=== PATIENT | female | born 1995 | race Caucasian/White ===

== ENCOUNTER 2020-02-16 17:34 | Emergency (ER) | payer OTHER ==
--- OUTSIDE RECORDS SUMMARY | 2020-02-16 17:42 | XMS REPORT | Summary of Care ---
:1995 Author Organization [facility] Address [address] [place] [address] Care Team Providers Name Role Phone Pcp, Patient Does Not Have A Primary Care Provider +1-000-00 0-0000 Encounter Details Date Type Department Care Team Description 01/29/2020 Letter (Out) [facility] Reggie Message s Doctor Unassigned, No 301 [facility] [place] [address] [address] [facility] [phone] [place] [address] Allergies Not on Filedocumented as of this encounter (statuses as of 01/29/2020) Medications Not on filedocumented as of this encounter (statuses as of 01/29/2020) Active Problems Not on filedocumented as of this encounter (statuses as of 01/29/2020) Social History Tobacco Use Types Packs/Day Years Used Date Never Assessed Sex Assigned at Date Recorded Not on file COVID-19 Exposure Response Date Recorded In the last month, have you been in contact with No / Unsure 01/29/2020 1:03 PM CDT someone who was confirmed 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 documented as of this encounter Last Filed Vital Signs Not on filedocumented in this encounter Plan of Treatment Health Maintenance Due Date Last Done Comments VARICELLA VACCINES (1 of 2 - 01/26/1996 2-dose childhood series) HPV VACCINES (1 - 2-dose series) 2006 Depression Screening 2007 DTaP,Tdap,and Td Vaccines (1 - 2014 Tdap) PAP SMEAR 01/26/2016 INFLUENZA VACCINE (#1) 2020 PNEUMOCOCCAL 0-64 YEARS COMBINED Aged Out No longer eligible based on SERIES patient's age to complete this topic documented as of this encounter Results Not on filedocumented in this encounter Insurance Payer Benefit Plan / Group Subscriber ID Effective Dates Phone Address Type AETNA AETNA CHOICE POS II [id number] 2018-Present POS documented as of this encounter
--- OUTSIDE RECORDS SUMMARY | 2020-02-16 17:42 | XMS REPORT | Summary of Care ---
:1995 Author Organization [facility] Address [address] [place] [address] Care Team Providers Name Role Phone Pcp, Patient Does Not Have A Primary Care Provider +1-000-00 0-0000 Encounter Details Date Type Department Care Team Description 01/29/2020 Letter (Out) [facility] Reggie Message s Doctor Unassigned, No 301 [facility] [place] [phone] [facility] [phone] [place] [address] Allergies Not on Filedocumented as of this encounter (statuses as of 01/29/2020) Medications Not on filedocumented as of this encounter (statuses as of 01/29/2020) Active Problems Not on filedocumented as of this encounter (statuses as of 01/29/2020) Social History Tobacco Use Types Packs/Day Years Used Date Never Assessed Sex Assigned at Date Recorded Not on file documented as of this encounter Last Filed [...] Address Type AETNA AETNA CHOICE POS II [id number] 2018-Present POS documented as of this encounter
--- OUTSIDE RECORDS SUMMARY | 2020-02-16 17:42 | XMS REPORT | Summary of Care ---
:1995 Author Organization [facility] Address [address] [place] [address] Care Team Providers Name Role Phone Pcp, Patient Does Not Have A Primary Care Provider +1-000-00 0-0000 Reason for Visit Reason Comments Results Encounter Details Date Type Department Care Team Description 01/31/2020 Telephone [facility] Carol Crystal, RN Results [address] [address] [place] [address] Allergies Not on Filedocumented as of this encounter (statuses as of 01/31/2020) Medications Not on filedocumented as of this encounter (statuses as of 01/31/2020) Active Problems Not on filedocumented as of this encounter (statuses as of 01/31/2020) Social History Tobacco Use Types Packs/Day Years [...] Signs Not on filedocumented in this encounter Miscellaneous Notes Telephone Encounter - Carol Crystal RN - 01/31/2020 7:19 PM CDTElisabeth Cordreo is a 25 year old female who tested negative for Covid-19. Letter mailed to address on file with the following information. Your COVID 19 testing results were negative. At this time, the COVID 19 virus was NOT found in your sample. Continue to protect yourself by wearing a facemask and washing your hands frequently. If youhave not had symptoms, you may return to work immediately. If you had symptoms, you may return to work or school when you are feeling better and have not had a fever for 24 hours or more without takingfever reducing medications such as acetaminophen or ibuprofen and are 10 days from your first symptoms. Wear a mask until it has been greater than 14 days from when your first symptoms appeared. If you are a [facility] or contract employee or student, please refer to this website for more information https: [email or web address]. If you feel you are not getting better, please call the [facility] at [phone] or toll free to schedule a telehealth visit or face to face visit with a provider. Most acute illnesses resolve within 7 days. [facility] Triage Nurse documented in this encounter Plan of Treatment Health [...] Address Type AETNA AETNA CHOICE POS II [id number] 2018-Present POS documented as of this encounter
--- OUTSIDE RECORDS SUMMARY | 2020-02-16 17:42 | XMS REPORT | Continuity of Care Document ---
:1995 Author Organization [facility] t Address [address] [place] [address] [address] [place] [address] Care Team Providers Name Role Phone Kenneth Crystal RN Attending Clinician Unavailable Lab, Fam Pob I Attending Clinician Unavailable Doctor Unassigned, Name Attending Clinician Unavailable Problems This patient has no known problems. Allergies, Adverse Reactions, Alerts This patient has no known allergies or adverse reactions. Medications This patient has no known medications. Procedures This patient has no known procedures. Encounters Start End Encounter Admission Attending Care Care Encounter Source Date/Time Date/Time Type Type Clinicians Facility Department ID 2020-01-31 2020-01-31 Telephone Carol Crystal [id number] 00:00:00 00:00:00 [place] [id number] [place] [id number] 2020-01-29 2020-01-29 Laboratory Lab, [facility] [id number] 13:00:01 13:20:01 Only Fam Pob I Health [id number] [place] [id number] [facility] [phone] [address] 2020-01-29 2020-01-29 Letter Doctor WALLACE [id number] 00:00:00 00:00:00 (Out) Unassigned, [place] [id number] [place] [phone] [id number] 2020-01-29 2020-01-29 Letter Doctor WALLACE [id number] 00:00:00 00:00:00 (Out) Unassigned, [place] [id number] [place] [facility] [id number] Results This patient has no known results.
--- OUTSIDE RECORDS SUMMARY | 2020-02-16 17:42 | XMS REPORT | Summary of Care ---
:1995 Author Organization [facility] Address [address] [place] [address] Care Team Providers Name Role Phone Pcp, Patient Does Not Have A Primary Care Provider +1-000-00 0-0000 Reason for Visit Reason Comments Exposure Encounter Details Date Type Department Care Team Description 01/29/[address] [facility] Family Chaparrita Carreno FNP [address] [place] [phone] Suspected Covid-19 [facility], [facility] Fam Pob I Virus Infection [address] [place] [address] (Primary D x) [place] [address] Allergies Not on Filedocumented as of this [...] Signs Not on filedocumented in this encounter Nursing Notes Alejandrina Gillespie - 01/29/2020 1:00 PM CDTElisabeth Cordero is a 25 year old female here for COVID Screening with a Nasopharyngeal Swab All droplet and contact precautions taken with appropriate PPE worn while interacting with patient. ? Goggles ? N95 Mask ? Gloves ? Gown RR 17 Pulse Ox 97 Pulse 95 Patient educated on plan of care for visit, swabbing technique, risks and benefits of test and length of time to receive results. Verbal consent obtained to perform test. CDC Fact Sheet for Patients nCoV Diagnostic Panel dated 08/23/2019 and Factsheet What to Do if Sick with COVID 19 08/03/19 provided. Patient swabbed per appropriate nasopharyngeal technique, and patient tolerated well. Patient was discharged from the testing clinic in stable condition. Alejandrina Gillespie 01/29/2020 1:04 PM documented in this encounter Plan of Treatment Name Type Priority Associated Diagnoses Order S chedule COVID-19 (PCR MOLECULAR LAB Routine Suspected Covid-1 9 Virus Expected: 01/29/2020, TESTING) Infection Expires: 2020 Health Maintenance Due Date Last Done Comments [...] Results Not on filedocumented in this encounter Visit Diagnoses Diagnosis Suspected Covid-19 Virus Infection - Brielle hansen documented in this encounter Additional Health Concerns Infection Onset Date Last Indicated Resolved Time COVID-19 Rule Out 01/29/2020 01/29/2020 documented as of this encounter documented as of this encounter
[2020-02-16 18:42] LABS: Absolute Lymphocytes (CBC) 2.5 K/uL (0.7-4.9); Basophils % 0.6 % (0-1.3); Hematocrit 38.3 % (36.0-45.0); Lymphocytes % 51.2 % (15.3-44.8); MPV 9.2 fL (7.6-11.3); RBC Red Blood Cell Count 4.28 M/uL (3.86-4.86)
[2020-02-16 19:00] LABS: BUN Blood Urea Nitrogen 20 mg/dL (7-18); Bicarbonate 27 mmol/L (21-32); Glucose Level 86 mg/dL (74-106); HCG, Quantitative 64 mIU/mL (1-3); Potassium 3.9 mmol/L (3.5-5.1); Sodium Level 141 mmol/L (136-145)
[2020-02-16 19:11] LABS: Urine Blood 3+ (NEG); Urine Glucose NEGATIVE (NEG); Urine Protein NEGATIVE (NEG); Urine Specific Gravity >1.030 (1.005-1.030); Urine pH 5.5 (5.0-7.0)
--- NOTE | 2020-02-16 20:15 | ER ---
Nurse's Notes [facility] Name: Elisabeth Cordero Age: 25 yrs Sex: Female : 1995 Arrival Date: 02/16/2020 Time: 17:37 Bed 7 Private MD: Diagnosis: Threatened Presentation: 02/15 17:42 Chief complaint: Patient states: Vaginal bleeding since Saturday getting slowly worse ll1 each day. Bleeding "like a light period" now with small clots. + cramping. Denies dysuria. int. nausea. Approximately 6 weeks . G1, P0 LMP January 07. Coronavirus screen: Client denies travel out of the [place] in the last 14 days. At this time, the client does not indicate any symptoms associated with coronavirus-19. Ebola Screen: Patient denies travel to an Ebola-affected area in the 21 days before illness onset. Initial Sepsis Screen: Does the patient meet any 2 criteria? No. Patient's initial sepsis screen is negative. Initial Sepsis Screen: Risk Assessment: Do you want to hurt yourself or someone else? Patient reports no desire to harm self or others. Onset of symptoms was February 12, 2020. 17:42 Method Of Arrival: Ambulatory ll1 17:42 Acuity: PHILL 3 ll1 19:29 Initial Sepsis Screen: Does the patient have a suspected source of infection? No. vc Patient's initial sepsis screen is negative. 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 - Social history:: Smoking status: Patient denies any tobacco usage or history of. Patient uses alcohol, only on a social basis. Patient/guardian denies using street drugs. Screenin:14 Abuse screen: Denies threats or abuse. Denies injuries from another. Nutritional jr10 screening: No deficits noted. Tuberculosis screening: No symptoms or risk factors identified. Fall Risk None identified. Assessment: 18:15 Obstetrical Assessment: General assessment: awake and alert, skin warm and dry, jr10 respirations even and unlabored, Patient reports abdominal cramping. General: Appears in no apparent distress. Behavior is appropriate for age. Pain: Denies pain. Neuro: No deficits noted. Cardiovascular: No deficits noted. Respiratory: No deficits noted. GI: Abdomen is non-distended, Abd is soft and non tender X 4 quads. Reports cramping, Patient currently denies diarrhea, nausea, vomiting. : Reports vaginal bleeding that is bright red, light flow, spotty, reports that she is approx 5 weeks , ; reports light intermittent bleeding that started this morning with mild lower abd cramping; reports blood that is "sometimes bright red and sometimes just a light pink"; pt has appt with OBGYN this Saturday. EENT: No deficits noted. No signs and/or symptoms were reported regarding the EENT system. Derm: No deficits noted. No signs and/or symptoms reported regarding the dermatologic system. Musculoskeletal: No deficits noted. No signs and/or symptoms reported regarding the musculoskeletal system. 19:00 Reassessment: Assumed care from Rob Portillo. vc 19:20 Reassessment: Patient and/or family updated on plan of care and expected duration. Pain vc level reassessed. Patient is alert, oriented x 3, equal unlabored respirations, skin warm/dry/pink. 20:30 Reassessment: Patient appears in no apparent distress at this time. Patient and/or vc family updated on plan of care and expected duration. Pain level reassessed. Patient is alert, oriented x 3, equal unlabored respirations, skin warm/dry/pink. Vital Signs: 17:42 BP 138 / 91; Pulse 86; Resp 17; Temp 98.5; Pulse Ox 100% ; Pain 2/10; ll1 18:50 BP 104 / 69; Pulse 69; Resp 16; Pulse Ox 100% on R/A; mh5 19:15 BP 119 / 65; Pulse 77; Resp 16; Pulse Ox 100% on R/A; vc Vitals: 19:29 Heart Tones Patient to early in for heart tones to be audible, vc vaginal ultrasound ordered.. ED Course: 17:37 Patient arrived in ED. ag5 17:41 Ana Cristina Rosas FNP-C [facility] kb 17:41 Gene Olson MD is Attending Physician. kb 17:44 Triage completed. ll1 17:44 Arm band placed on Patient placed in an exam room, on a stretcher. ll1 18:00 Suzie Conti, RN is Primary Nurse. jr10 18:14 Patient has correct armband on for positive identification. Placed in gown. Bed in low jr10 position. Call light in reach. Side rails up X2. Pulse ox on. NIBP on. 18:15 No provider procedures requiring assistance completed. jr10 18:27 Urine --Ancillary (enter results) Sent. mh5 18:27 Urine Dipstick--Ancillary (enter results) Sent. 5 18:27 Quantitative Hcg Sent. 5 18:27 Abo/rh Typing Sent. 5 18:27 Basic Metabolic Panel Sent. 5 18:27 CBC with Diff Sent. 5 18:28 Initial lab(s) drawn, by hi, sent to lab. Urine collected: clean catch specimen, clear. 5 Inserted saline lock: 22 gauge in right antecubital area, using aseptic technique. Blood collected. 18:29 Warm blanket given. [facility] 19:10 Primary Nurse role handed off by Suzie Conti RN vc 19:10 Angela Nichols, ROB is Primary Nurse. vc 19:50 Transvaginal Ob In Process Unspecified. EDMS 20:40 IV discontinued, intact, bleeding controlled, No redness/swelling at site. Pressure vc dressing applied. Administered Medications: No medications were administered Point of Care Testing: Urine : 19:15 hCG Reading: Positive; Control Reading: Positive; vc Outcome: 20:15 Discharge ordered by MD. kb 20:40 Discharged to home ambulatory. vc 20:40 Condition: good 20:40 Discharge instructions given to patient, Instructed on discharge instructions, follow up and referral plans. Demonstrated understanding of instructions, follow-up care. 20:44 Patient left the ED. vc Signatures: Dispatcher [employer] EDMO Ana Cristina Rosas FNP-C FNP-Marielle Linton 5 Hector Melendez 5 Angela Nichols RN RN vc Christen Sidhu RN RN 1 Suzie Conti RN RN jr10 Corrections: (The following items were deleted from the chart) 17:45 17:42 Chief complaint: Patient states: Vaginal bleeding since Saturday getting slowly ll1 worse each day. Bleeding "like a light period" now with small clots. + cramping. Denies dysuria. int. nausea. ll1
--- NOTE | 2020-02-16 20:15 | EDPHYS ---
Physician Documentation [facility] Name: Elisabeth Cordero Age: 25 yrs Sex: Female : 1995 Arrival Date: 02/16/2020 Time: 17:37 Bed 7 Private MD: ED Physician Gene Olson HPI: 02/15 21:02 This 25 yrs old Female presents to ER via Ambulatory with complaints of kb Vaginal Bleeding, + Preg <12wks. 21:02 The patient presents to the emergency department with vaginal bleeding, that is light. kb course: care: private OB physician, Leakage of Fluid: none appreciated, Ultrasound: the patient has not had an ultrasound, Risk/complications: no obvious risks or complications are appreciated. Previous pregnancies: the patient has never been . Associated signs and symptoms: Pertinent positives: vaginal bleeding, Pertinent negatives: abdominal pain, chest pain, diarrhea, dysuria, fever, frequency, nausea, ruptured membranes, seizure, shortness of breath, vaginal discharge, vomiting. The patient has not experienced similar symptoms in the past. The patient has not recently seen a physician. Pt reports light vaginal bleeding that started Saturday, was gone on Saturday, then started again after intercourse. . 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 - Social history:: Smoking status: Patient denies any tobacco usage or history of. Patient uses alcohol, only on a social basis. Patient/guardian denies using street drugs. ROS: 21:01 Constitutional: Negative for fever, chills, and weight loss, Cardiovascular: Negative kb for chest pain, palpitations, and edema, Respiratory: Negative for shortness of breath, cough, wheezing, and pleuritic chest pain, Abdomen/GI: Negative for abdominal pain, nausea, vomiting, diarrhea, and constipation, Back: Negative for injury and pain, MS/Extremity: Negative for injury and deformity, Skin: Negative for injury, rash, and discoloration, Neuro: Negative for headache, weakness, numbness, tingling, and seizure. 21:01 : Positive for vaginal bleeding, Negative for injury or acute deformity, urinary symptoms, urinary frequency, small amounts, hematuria, pelvic pain, flank pain, burning with urination, difficulty urinating, bladder incontinence, foul smelling urine, vaginal discharge, vaginal itching, menstrual abnormality, missed period. Exam: 21:01 Constitutional: This is a well developed, well nourished patient who is awake, alert, kb and in no acute distress. Head/Face: Normocephalic, atraumatic. Neck: Trachea midline, no thyromegaly or masses palpated, and no cervical lymphadenopathy. Supple, full range of motion without nuchal rigidity, or vertebral point tenderness. No Meningismus. Chest/axilla: Normal chest wall appearance and motion. Nontender with no deformity. No lesions are appreciated. Cardiovascular: Regular rate and rhythm with a normal S1 and S2. No gallops, murmurs, or rubs. Normal PMI, no JVD. No pulse deficits. Respiratory: Lungs have equal breath sounds bilaterally, clear to auscultation and percussion. No rales, rhonchi or wheezes noted. No increased work of breathing, no retractions or nasal flaring. Abdomen/GI: Soft, non-tender, with normal bowel sounds. No distension or tympany. No guarding or rebound. No evidence of tenderness throughout. Skin: Warm, dry with normal turgor. Normal color with no rashes, no lesions, and no evidence of cellulitis. MS/ Extremity: Pulses equal, no cyanosis. Neurovascular intact. Full, normal range of motion. Neuro: Awake and alert, GCS 15, oriented to person, place, time, and situation. Cranial nerves II-XII grossly intact. Motor strength 5/5 in all extremities. Sensory grossly intact. Cerebellar exam normal. Normal gait. Vital Signs: 17:42 BP 138 / 91; Pulse 86; Resp 17; Temp 98.5; Pulse Ox 100% ; Pain 2/10; ll1 18:50 BP 104 / 69; Pulse 69; Resp 16; Pulse Ox 100% on R/A; mh5 19:15 BP 119 / 65; Pulse 77; Resp 16; Pulse Ox 100% on R/A; vc MDM: 17:49 Patient medically screened. kb 21:01 Data reviewed: vital signs, nurses notes. Data interpreted: Pulse oximetry: on room air kb is 100 %. Interpretation: normal. Counseling: I had a detailed discussion with the patient and/or guardian regarding: the historical points, exam findings, and any diagnostic results supporting the discharge/admit diagnosis, lab results, radiology results, the need for outpatient follow up, an OB/Gyne specialist. ED course: Pt has appt with OB on Saturday. . 02/15 17:41 Order name: Quantitative Hcg; Complete Time: 19:01 kb 02/15 17:41 Order name: Abo/rh Typing; Complete Time: 19:30 kb 02/15 17:41 Order name: Basic Metabolic Panel; Complete Time: 19:01 kb 02/15 17:41 Order name: CBC with Diff; Complete Time: 18:46 kb 02/15 18:04 Order name: Urine Dipstick--Ancillary (enter results); Complete Time: 19:21 em1 02/15 18:04 Order name: Urine --Ancillary (enter results); Complete Time: 19:21 em1 02/15 17:41 Order name: Urine Test (obtain specimen); Complete Time: 18:00 kb 02/15 17:41 Order name: IV Saline Lock; Complete Time: 18:27 kb 02/15 17:41 Order name: Labs collected and sent; Complete Time: 18:27 kb 02/15 17:41 Order name: NPO; Complete Time: 18:01 kb 02/15 17:41 Order name: Urine Dipstick-Ancillary (obtain specimen); Complete Time: 18:00 kb 02/15 19:02 Order name: US Transvaginal Ob; Complete Time: 20:23 kb Administered Medications: No medications were administered Point of Care Testing: Urine : 19:15 hCG Reading: Positive; Control Reading: Positive; vc Disposition: 02/16 07:02 Co-signature as Attending Physician, Gene Olson MD. rn Disposition: 02/16/20 20:15 Discharged to Home. Impression: Threatened . - Condition is Stable. - Discharge Instructions: Vaginal Bleeding During , First Trimester, Threatened Miscarriage, [id number], Pelvic Rest. - Medication Reconciliation Form, Thank You Letter, Antibiotic Education, Prescription Opioid Use form. - Follow up: Emergency Department; When: As needed; Reason: Worsening of condition. Follow up: Private Physician; When: 2 - 3 days; Reason: Recheck today's complaints, Continuance of care, Re-evaluation by your physician. Signatures: Dispatcher [employer] EDAna Cristina Guillermo, DYE HOUSE WORKER-C DYE HOUSE WORKER-Ckb Gene Olson MD MD rn Calcote, Vanessa, RN RN vc Lewis, Lynsay, RN RN ll1 Corrections: (The following items were deleted from the chart) 02/15 20:44 20:15 02/16/2020 20:15 Discharged to Home. Impression: Threatened . Condition vc is Stable. Forms are Medication Reconciliation Form, Thank You Letter, Antibiotic Education, Prescription Opioid Use. Follow up: Emergency Department; When: As needed; Reason: Worsening of condition. Follow up: Private Physician; When: 2 - 3 days; Reason: Recheck today's complaints, Continuance of care, Re-evaluation by your physician. kb
--- NOTE | 2020-02-16 20:21 | RAD REPORT ---
EXAM DESCRIPTION: US - Transvaginal OB - 02/16/2020 7:51 pm CLINICAL HISTORY: VAGINAL BLEEDING, beta HCG 64 COMPARISON: No comparisons TECHNIQUE: Endovaginal sonography performed. FINDINGS: No intrauterine gestational sac or sac remnant identifiable. Endometrium is thickened at 1 6 mm. No focal mass, polyp or hematoma. No myometrial mass identifiable. Both ovaries are identifiable and show normal blood flow in the stroma. No solid or cystic dominant o varian or adnexal finding. No blood or fluid in the cul de sac. IMPRESSION: No gestational sac or sac remnant identified. No mass or other adnexal abnormality to suspect ectopic . Follow-up sonography could be performed if there is clinical or laboratory evidence for ongoing pregn zaki.
[2020-02-16 22:44] VITALS: TEMP 98.5; O2SAT 100
[2020-02-16 22:46] VITALS: BP 119/65
== END 2020-02-16 20:44 | disposition home or self-care (01) ==
LOC: ER 17:34
DX: O20.0 Threatened abortion (principal); Z3A.00 Weeks of gestation of pregnancy not specified
CPT/HCPCS: 36415; 76817; 80048; 81003; 81025; 84702; 85025; 86900; 86901; 99284

== ENCOUNTER 2020-06-27 16:58 | Emergency (ER) | payer OTHER ==
--- OUTSIDE RECORDS SUMMARY | 2020-06-27 17:01 | XMS REPORT | Summary of Care ---
:1995 Author Organization [facility] Address [address] [place] [address] Care Team Providers Name Role Phone Pcp, Patient Does Not Have A Primary Care Provider +1-000-00 0-0000 Reason for Visit Reason Comments LAB Encounter Details Date Type Department Care Team Description 04/27/[address] [facility] Family Arlet Shearer, NINI [address] [place], [place] [address] [address] Contact with or Medicine - [facility] Fam Pob I exposure to viral [address] [place] [address] disease (P rimary Dx) [place] [address] Allergies Not on Filedocumented as of this encounter (statuses as of 04/27/2020) Medications Not on filedocumented as of this encounter (statuses as of 04/27/2020) Active Problems Not on filedocumented as of this encounter (statuses as of 04/27/2020) Social History Tobacco Use Types Packs/Day Years Used Date Never Assessed Sex Assigned at Date Recorded Not on file COVID-19 Exposure Response Date Recorded In the last month, have you been in contact with Yes 04/27/2020 8:35 AM RN PATIENT CARE someone who was confirmed 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 documented as of this encounter Last Filed Vital Signs Not on filedocumented in this encounter Nursing Notes Tamy Powell MA - 04/27/2020 8:40 AM CSTElisabeth Cordero is a 25 year old female here for a Rule Out Covid-19 Nasopharyngeal Swab. Patient educated on plan of care for visit, swabbing technique, risks and benefits of test and length of timeto receive results. Verbal consent obtained to perform test. CDC Fact Sheet for Patients provided topatient. All droplet and contact precautions taken with appropriate PPE worn while interacting with patient. - Goggles - N95 Mask - Gloves - Gown RR=16 O2 Sat=99 Patient swabbed using appropriate nasopharyngeal technique, and patient tolerated well. Patient was discharged in stable condition. Tamy Powell MA 04/27/2020 8:43 AM PATIENT CARE documented in this encounter Plan of Treatment Name Type Priority Associated Diagnoses Date/Ti me COVID-19 (MOLECULAR LAB Routine Contact with or expos ure 04/27/2020 8:42 AM RN PATIENT CARE TESTING to viral disease NUCLEIC ACID AMPLIFICATION) Name Type Priority Associated Diagnoses Order S chedule COVID-19 (MOLECULAR LAB Routine Contact with or expos ure Expected: 04/27/2020, TESTING to viral disease Expires: 2020 NUCLEIC ACID AMPLIFICATION) Health Maintenance Due Date Last Done Comments [...] filedocumented in this encounter Visit Diagnoses Diagnosis Contact with or exposure to viral diseas e - Primary Contact with or exposure to other viral diseases documented in this encounter Additional Health Concerns Infection Onset Date Last Indicated Resolved Time COVID-19 Rule Out 04/27/2020 04/27/2020 documented as of this encounter documented as of this encounter
--- OUTSIDE RECORDS SUMMARY | 2020-06-27 17:01 | XMS REPORT | Summary of Care ---
:1995 Author Organization [facility] Address [address] [place] [address] Care Team Providers Name Role Phone Pcp, Patient Does Not Have A Primary Care Provider +1-000-00 0-0000 Reason for Visit Reason Comments LAB test only Encounter Details Date Type Department Care Team Description 06/23/2020 Laboratory Only [facility] Raul Carson PA-C [address] [place] [address] Exposure to Medicine - [facility], [facility] Fam Pob I SARS-associated [address] [place] [address] coronaviru s ([address] Dx) [place] [address] Allergies Not on Filedocumented as of this encounter (statuses as of 06/23/2020) Medications Not on filedocumented as of this encounter (statuses as of 06/23/2020) Active Problems Not on filedocumented as of this encounter (statuses as of 06/23/2020) Social History Tobacco Use Types Packs/Day Years Used Date Never Assessed Sex Assigned at Date Recorded Not on file COVID-19 Exposure Response Date Recorded In the last month, have you been in contact with Yes 06/23/2020 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 documented as of this encounter Last Filed Vital Signs Not on filedocumented in this encounter Nursing Notes Keesha Gallagher MA - 06/23/2020 4:15 PM CSTElisabeth Cordero is a 25 year old [...] - N95 Mask - Gloves - Gown RR=14 O2 Sat=99% Patient swabbed using appropriate nasopharyngeal technique, and patient tolerated well. Patient was discharged in stable condition. Keesha Gallagher MA 06/23/2020 4:21 PM MIC CAPACITOR PROCESSOR documented in this encounter Plan of Treatment Name Type Priority Associated Diagnoses Order S raghavwandydebby COVID-19 (MOLECULAR LAB Routine Exposure to SARS-asso ciated Ordered: 06/23/2020 TESTING coronavirus NUCLEIC ACID AMPLIFICATION) documented as of this encounter Results Not on filedocumented in this encounter Visit Diagnoses Diagnosis Exposure to SARS-associated coronavirus - Primary documented in this encounter Additional Health Concerns Infection Onset Date Last Indicated Resolved Time COVID-19 Rule Out 06/23/2020 06/23/2020 documented as of this encounter documented as of this encounter
--- OUTSIDE RECORDS SUMMARY | 2020-06-27 17:01 | XMS REPORT | Continuity of Care Document ---
:1995 Author Organization [facility] t Address [address] [place] [address] Care Team Providers Name Role Phone Lab, Fam Pob I Attending Clinician Unavailable Marah RIVAS M Attending Clinician Unavailable Doctor Unassigned, Name Attending Clinician Unavailable Problems This patient has no known problems. Allergies, Adverse Reactions, Alerts This patient has no known allergies or adverse reactions. Medications This patient has no known medications. Procedures This patient has no known procedures. Encounters Start End Encounter Admission Attending Care Care Encounter Source Date/Time Date/Time Type Type Clinicians Facility Department ID 2020-06-23 2020-06-23 Laboratory Lab, [facility] [id number] 16:15:26 16:35:26 Only Fam Pob I Health [id number] [place] [id number] Professio [phone] nal [address] 2020-04-27 2020-04-27 Laboratory Lab, [facility] [id number] 08:41:59 09:01:59 Only Fam Pob I Health [id number] [place] [id number] Professio [phone] nal [address] 2020-01-31 2020-01-31 Telephone Carol Crystal [id number] 00:00:00 00:00:00 [place] [id number] [facility] [id number] [id number] 2020-01-29 2020-01-29 Laboratory Lab, [facility] [id number] 13:00:01 13:20:01 Only Fam Pob I Health [id number] [place] [id number] Professio [phone] nal 044 [address] 2020-01-29 2020-01-29 Letter Doctor [place]AD[place] [id number] 00:00:00 00:00:00 (Out) Unassigned, [place] [id number] [place] [facility] [id number] [id number] 2020-01-29 2020-01-29 Letter Doctor [place] [id number] 00:00:00 00:00:00 (Out) Unassigned, ZAIDA [id number] [place] [facility] [phone] 044 Results This patient has no known results.
--- NOTE | 2020-06-27 18:54 | RAD REPORT ---
EXAM DESCRIPTION: Adriano Alcazar (2 Views)06/27/2020 5:49 pm CLINICAL HISTORY: Chest pain COMPARISON: 2012 FINDINGS: The lungs appear clear of acute infiltrate. The heart is normal size IMPRESSION: No acute abnormalities displayed
--- NOTE | 2020-06-27 19:13 | ER ---
Nurse's Notes [facility] Name: Elisabeth Cordero Age: 25 yrs Sex: Female : 1995 Arrival Date: 06/27/2020 Time: 17:02 Bed 5 Private MD: Diagnosis: Coronavirus infection, unspecified Presentation: 06/27 17:24 Chief complaint: Patient states: Pt reports she has had chest pressure, worse with ca1 inspiration, since . Tested positive for COVID on Saturday. Called her pcp and was told to come to the ER for chest x-ray. Coronavirus screen: Client presents with at least one sign or symptom that may indicate coronavirus-19. Client reports previous positive COVID test result. Ebola Screen: Patient negative for fever greater than or equal to 101.5 degrees Fahrenheit, and additional compatible Ebola Virus Disease symptoms Patient denies exposure to infectious person. Patient denies travel to an Ebola-affected area in the 21 days before illness onset. No symptoms or risks identified at this time. Initial Sepsis Screen: Does the patient meet any 2 criteria? No. Patient's initial sepsis screen is negative. Does the patient have a suspected source of infection? No. Patient's initial sepsis screen is negative. Risk Assessment: Do you want to hurt yourself or someone else? Patient reports no desire to harm self or others. Onset of symptoms was June 23, 2020. 17:24 Method Of Arrival: Ambulatory ca1 17:24 Acuity: PHILL 3 ca1 Triage Assessment: 17:22 General: Appears in no apparent distress. comfortable, Behavior is calm, cooperative. ca1 Pain: Denies pain. Cardiovascular: No deficits noted. 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 - Social history:: Smoking status: Patient denies any tobacco usage or history of. Screenin:20 Abuse screen: Denies threats or abuse. Denies injuries from another. Nutritional bp screening: No deficits noted. Tuberculosis screening: No symptoms or risk factors identified. Fall Risk None identified. Assessment: 17:20 General: SEE TRIAGE NOTE. bp 18:50 Reassessment: Patient appears in no apparent distress at this time. No changes from bp previously documented assessment. Patient and/or family updated on plan of care and expected duration. Pain level reassessed. Patient is alert, oriented x 3, equal unlabored respirations, skin warm/dry/pink. 19:25 Reassessment: Patient is alert, oriented x 3, equal unlabored respirations, skin aa5 warm/dry/pink. Vital Signs: 17:22 BP 141 / 78; Pulse 82; Resp 18; Temp 97.1; Pulse Ox 99% ; Weight 95.25 kg; Height 5 ft. ca1 7 in. (170.18 cm); Pain 6/10; 18:49 BP 94 / 47; Pulse 70; Resp 16; Pulse Ox 99% ; bp 19:25 BP 112 / 89; Pulse 76; Resp 18 S; Pulse Ox 99% on R/A; aa5 17:22 Body Mass Index 32.89 (95.25 kg, 170.18 cm) ca1 ED Course: 17:02 Patient arrived in ED. as 17:13 Ana Cristina Rosas [facility]NP-C [facility] kb 17:13 Ajit Morgan MD is Attending Physician. kb 17:20 Patient has correct armband on for positive identification. Bed in low position. Call bp light in reach. Side rails up X2. Pulse ox on. NIBP on. 17:24 Arm band placed on right wrist. ca1 17:26 Triage completed. ca1 17:49 Chest Pa And Lat (2 Views) XRAY In Process Unspecified. EDMS 18:48 Herbert Mcneil, ROB is Primary Nurse. bp 19:25 No provider procedures requiring assistance completed. Patient did not have IV access aa5 during this emergency room visit. Administered Medications: No medications were administered Outcome: 19:13 Discharge ordered by . kb 19:25 Discharged to home ambulatory. aa5 19:25 Condition: stable 19:25 Discharge instructions given to patient, Instructed on discharge instructions, follow up and referral plans. medication usage, Demonstrated understanding of instructions, follow-up care, medications, Prescriptions given X 3. 19:29 Patient left the ED. aa5 Signatures: Dispatcher [employer] Ana Cristina Vázquez, COMMERCIAL LINES ACCOUNT ASSISTANT-C COMMERCIAL LINES ACCOUNT ASSISTANT-Isaacb Renee Bhatia Audri, RN RN aa5 Herbert Mcneil, RN RN bp Stephanie King, ROB RN ca1
--- NOTE | 2020-06-27 19:13 | EDPHYS ---
Physician Documentation [facility] Name: Elisabeth Cordero Age: 25 yrs Sex: Female : 1995 Arrival Date: 06/27/2020 Time: 17:02 Bed 5 Private MD: ED Physician Ajit Morgan HPI: 06/27 19:33 This 25 yrs old Female presents to ER via Ambulatory with complaints of Chest kb Pain - covid+. 19:33 The patient or guardian reports difficulty breathing, flu symptoms, low-grade fever, kb myalgias. Onset: The symptoms/episode began/occurred 5 day(s) ago. Severity of symptoms: At their worst the symptoms were moderate, in the emergency department the symptoms are unchanged. Modifying factors: The symptoms are alleviated by nothing, the symptoms are aggravated by nothing. Associated signs and symptoms: Pertinent positives: chest pain, fever, nausea. The patient has not experienced similar symptoms in the past. The patient has not recently seen a physician. 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 - Social history:: Smoking status: Patient denies any tobacco usage or history of. ROS: 19:32 Abdomen/GI: Negative for abdominal pain, nausea, vomiting, diarrhea, and constipation, kb Back: Negative for injury and pain, MS/Extremity: Negative for injury and deformity, Skin: Negative for injury, rash, and discoloration. 19:32 Constitutional: Positive for body aches, chills, fatigue, fever, malaise. 19:32 Cardiovascular: Positive for chest pain. 19:32 Respiratory: Positive for shortness of breath. 19:32 Neuro: Positive for headache. Exam: 19:32 Constitutional: This is a well developed, well nourished patient who is awake, alert, kb and in no acute distress. Head/Face: Normocephalic, atraumatic. Chest/axilla: Normal chest wall appearance and motion. Nontender with no deformity. No lesions are appreciated. Cardiovascular: Regular rate and rhythm with a normal S1 and S2. No gallops, murmurs, or rubs. Normal PMI, no JVD. No pulse deficits. Respiratory: Lungs have equal breath sounds bilaterally, clear to auscultation and percussion. No rales, rhonchi or wheezes noted. No increased work of breathing, no retractions or nasal flaring. Abdomen/GI: Soft, non-tender, with normal bowel sounds. No distension or tympany. No guarding or rebound. No evidence of tenderness throughout. Skin: Warm, dry with normal turgor. Normal color with no rashes, no lesions, and no evidence of cellulitis. MS/ Extremity: Pulses equal, no cyanosis. Neurovascular intact. Full, normal range of motion. Neuro: Awake and alert, GCS 15, oriented to person, place, time, and situation. Cranial nerves II-XII grossly intact. Motor strength 5/5 in all extremities. Sensory grossly intact. Cerebellar exam normal. Normal gait. 19:54 ECG was reviewed by the Attending Physician. Vital Signs: 17:22 BP 141 / 78; Pulse 82; Resp 18; Temp 97.1; Pulse Ox 99% ; Weight 95.25 kg; Height 5 ft. ca1 7 in. (170.18 cm); Pain 6/10; 18:49 BP 94 / 47; Pulse 70; Resp 16; Pulse Ox 99% ; bp 19:25 BP 112 / 89; Pulse 76; Resp 18 S; Pulse Ox 99% on R/A; aa5 17:22 Body Mass Index 32.89 (95.25 kg, 170.18 cm) ca1 MDM: 17:13 Patient medically screened. kb 18:48 Data reviewed: vital signs, nurses notes. Data interpreted: Pulse oximetry: on room air kb is 99 %. Interpretation: normal. 19:32 Counseling: I had a detailed discussion with the patient and/or guardian regarding: the kb historical points, exam findings, and any diagnostic results supporting the discharge/admit diagnosis, lab results, radiology results, the need for outpatient follow up, a family practitioner, to return to the emergency department if symptoms worsen or persist or if there are any questions or concerns that arise at home. 06/27 17:20 Order name: Chest Pa And Lat (2 Views) XRAY; Complete Time: 18:57 ca1 06/27 17:20 Order name: EKG; Complete Time: 17:20 ca1 06/27 17:20 Order name: EKG - Nurse/Tech; Complete Time: 18:57 ca1 EC:54 Rate is 64 beats/min. Rhythm is regular. QRS Mayo is Normal. MN interval is normal at kb 150 msec. QRS interval is normal at 84 msec. QT interval is normal at 386 msec. Administered Medications: No medications were administered Disposition: 06/28 06:37 Co-signature as Attending Physician, Ajit Morgan MD I agree with the assessment and sandip plan of care. Disposition: 06/27/20 19:13 Discharged to Home. Impression: Coronavirus infection, unspecified. - Condition is Stable. - Discharge Instructions: Viral Respiratory Infection, Zyxn-Dv-Zlac, COVID-19. - Prescriptions for ivermectin 3 mg Oral tablet - take 6 tablet by ORAL route as directed take first dose now, then second dose on day 3; 12 tablet. Prednisone 20 mg Oral Tablet - take 1 tablet by ORAL route once daily for 5 days; 5 tablet. Albuterol Sulfate 90 mcg/actuation - inhale 1-2 puff by INHALATION route every 4-6 hours; 1 Inhaler. - Medication Reconciliation Form, Thank You Letter, Antibiotic Education, Prescription Opioid Use, Work release form form. - Follow up: Emergency Department; When: As needed; Reason: Worsening of condition. Follow up: Private Physician; When: 2 - 3 days; Reason: Recheck today's complaints, Continuance of care, Re-evaluation by your physician. Signatures: Dispatcher [employer] Ana Cristina Vázquez, CHRISTINA ÁLVAREZ-Ajit Saucedo MD MD cha Calderon, Audri, RN RN aa5 Stephanie King, RN RN ca1 Corrections: (The following items were deleted from the chart) 06/27 19:29 19:13 06/27/2020 19:13 Discharged to Home. Impression: Coronavirus infection, aa5 unspecified. Condition is Stable. Forms are Medication Reconciliation Form, Thank You Letter, Antibiotic Education, Prescription Opioid Use. Follow up: Emergency Department; When: As needed; Reason: Worsening of condition. Follow up: Private Physician; When: 2 - 3 days; Reason: Recheck today's complaints, Continuance of care, Re-evaluation by your physician. kb
[2020-06-27 19:56] VITALS: TEMP 97.1; O2SAT 99
[2020-06-27 19:57] VITALS: BP 94/47
--- NOTE | 2020-06-28 17:15 | EKG ---
Test Date: 2020-06-27 Test Time: 18:34:08 Deputy Juvenile Officer: CLAUS MEASUREMENT RESULTS: Intervals: Rate: 64 CA: 150 QRSD: 84 QT: 386 QTc: 398 Stanley: P: 35 CA: 150 QRS: 45 T: 38 INTERPRETIVE STATEMENTS: Normal sinus rhythm Normal ECG Compared to ECG 11/26/2012 03:05:17 Sinus arrhythmia no longer present Electronically Signed On 06-28-20 17:12:56 DECORATING INSTRUCTOR by Aristides Kimble
== END 2020-06-27 19:29 | disposition home or self-care (01) ==
LOC: ER 16:58
DX: U07.1 COVID-19 (principal); R07.9 Chest pain, unspecified; F90.9 Attention-deficit hyperactivity disorder, unspecified type; F32.9 Major depressive disorder, single episode, unspecified; F41.9 Anxiety disorder, unspecified
CPT/HCPCS: 71046; 93005; 99283

== ENCOUNTER → 2023-07-15 | Emergency (ER) | payer OTHER, SELFPAY ==
--- OUTSIDE RECORDS SUMMARY | 2023-07-15 01:45 | XMS REPORT | Continuity of Care Document ---
Author Name Unknown Address [address] [facility] [place] [address] [facility] thconnect Address [address] [facility] [address] [place] [address] Care Team Providers Care Molder Offbearer Name Role Phone Pcp, Patient Does Not Have A Primary Care Physic jhonny Dontrell Olmos Attending Clinician [phone] Unknown, Attending Attending Clinician Unavailab DONTRELL Mesa Attending Clinician Unavailable Renuka Craig Attending Clinician [phone] RENUKA ALVA Attending Clinician Unavailrobbie e Doctor Unassigned, [place] Attending Clinician U navailable Only, Ang Db Test Attending Clinician Unavailrobbie e Lab, Adc Fam Pob I Attending Clinician Unavailab Madison Gannon PA-C Attending Clinician [phone] MADISON HURTADO Attending Clinician Unavailable Shanelle Ozuna Attending Clinician [phone] SHANELLE MARIE Attending Clinician Unavailable Carol Crystal RN Attending Clinician Unavailable Naye Leavitt Attending Clinician [phone] NAYE CARRENO Attending Clinician Unavailable Payers Payer Name Policy Type Policy Number Effective Date Expirati on Date Source Problems Condition Name Condition Details Condition Category Status Onset Date Resolution Date Last Treatment Date Treating Clinician Comments Source No known active problems No known active problems Disease [facility] Allergies, Adverse Reactions, Alerts Allergy Name Allergy Type Status Severity Reaction(s) Onset Date Inactive Date Treating Clinician Comments Source NO KNOWN ALLERGIE S Drug Class Active [facility] Social History Social Habit Start Date Stop Date Quantity Comments Source Gender identity [facility] Sexual orientation U [facility] Exposure to SARS-CoV-2 (event) 2022-05-09 00:00:00 2022-05-19 16:55:00 Not sure [facility] History of Social function 2022-05-19 00:00:00 2022-05-19 00:00:00 [facility] Tobacco use and exposure 2022-05-19 00:00:00 2022-05-19 00:00:00 Smokeless tobacco non-user [facility] Sex Assigned At 1995 00:00:00 1995 00:00:00 [facility] Smoking Status Start Date Stop Date Source Tobacco smoking consumption unknown [facility] Never smoked tobacco [facility] Medications Ordered Medication Name Filled Medication Name Start Date Stop Date Current Medication? Ordering Clinician Indication Dosage Frequency Signature (SIG) Comments Components Source ipratropium -albuteroL (DUONEB) 0.5 mg-3 mg(2.5 mg base)/3 mL nebulizer solution 3 mL 2021-06 00:15: 00 05-19 23:33 :00 No [id number] 3mL [facility] methylPREDN ISolone acetate (DEPO-MEDRO L) injection 40 mg 2021-06 00:15: 00 05-19 23:32 :00 No [id number] 40mg [facility] methylPREDN ISolone acetate (DEPO-MEDRO L) injection 40 mg 2021-06 00:15: 00 05-19 23:32 :00 No [id number] 40mg 40 mg, Intramuscu lar, ONCE, 1 dose, On 05/19/22 at 1815, Routine [facility] ipratropium -albuteroL (DUONEB) 0.5 mg-3 mg(2.5 mg base)/3 mL nebulizer solution 3 mL 2021-06 00:15: 00 05-19 23:33 :00 No [id number] 3mL 3 mL, Inhalation , ONCE, 1 dose, On 05/19/22 at 1815, Routine [facility] lisdexamfet amine 20 mg capsule 2021-06 16:58: 05 Yes 20mg Take 20 mg by mouth. [facility] lisdexamfet amine 20 mg capsule 2021-06 16:58: 05 Yes 20mg Take 20 mg by mouth. [facility] lisdexamfet amine 20 mg capsule 2021-06 16:58: 05 Yes 20mg Take 20 mg by mouth. [facility] lisdexamfet amine 20 mg capsule 2021-06 16:58: 05 Yes 20mg Take 20 mg by mouth. [facility] albuterol 90 mcg/actuati on inhaler 2021-06 00:00: 00 Yes [id number] 2{puff} Inhale 2 Puffs every 6 (six) hours as needed for Wheezing, Bronchospa sm or Chest tightness. [facility] bromphenira mine-pseudo ephedrine-D M (BROMFED DM) 2-30-10 mg/5 mL syrup 2021-06 00:00: 00 Yes [id number] 5mL Take 5 mL by mouth 4 (four) times daily as needed for Congestion /Allergies or Cough. [facility] albuterol 90 mcg/actuati on inhaler 2021-06 00:00: 00 Yes [id number] 2{puff} Inhale 2 Puffs every 6 (six) hours as needed for Wheezing, Bronchospa sm or Chest tightness. [facility] bromphenira mine-pseudo ephedrine-D M (BROMFED DM) 2-30-10 mg/5 mL syrup 2021-06 00:00: 00 Yes [id number] 5mL Take 5 mL by mouth 4 (four) times daily as needed for Congestion /Allergies or Cough. [facility] albuterol 90 mcg/actuati on inhaler 2021-06 00:00: 00 Yes [id number] 2{puff} Inhale 2 Puffs every 6 (six) hours as needed for Wheezing, Bronchospa sm or Chest tightness. [facility] bromphenira mine-pseudo ephedrine-D M (BROMFED DM) 2-30-10 mg/5 mL syrup 2021-06 2 00:00: 00 Yes [id number] 5mL Take 5 mL by mouth 4 (four) times daily as needed for Congestion /Allergies or Cough. [facility] albuterol 90 mcg/actuati on inhaler 2021-06 00:00: 00 Yes [id number] 2{puff} Inhale 2 Puffs every 6 (six) hours as needed for Wheezing, Bronchospa sm or Chest tightness. [facility] bromphenira mine-pseudo ephedrine-D M (BROMFED DM) 2-30-10 mg/5 mL syrup 2021-06 00:00: 00 Yes [id number] 5mL Take 5 mL by mouth 4 (four) times daily as needed for Congestion /Allergies or Cough. [facility] phentermine 37.5 mg tablet 2021-06 00:00: 00 Yes 37.5mg Take 37.5 mg by mouth in the morning. [facility] phentermine 37.5 mg tablet 2021-06 00:00: 00 Yes 37.5mg Take 37.5 mg by mouth in the morning. [facility] phentermine 37.5 mg tablet 2021-06 00:00: 00 Yes 37.5mg Take 37.5 mg by mouth in the morning. [facility] phentermine 37.5 mg tablet 2021-06 00:00: 00 Yes 37.5mg Take 37.5 mg by mouth in the morning. [facility] SAXENDA 3 mg/0.5 mL (18 mg/3 mL) PnIj 2021-06 00:00: 00 Yes ADMINISTER 3 MG UNDER THE SKIN DAILY [facility] SAXENDA 3 mg/0.5 mL (18 mg/3 mL) [facility] 2021-06 00:00: 00 Yes ADMINISTER 3 MG UNDER THE SKIN DAILY [facility] SAXENDA 3 mg/0.5 mL (18 mg/3 mL) [facility] 2021-06 00:00: 00 Yes ADMINISTER 3 MG UNDER THE SKIN DAILY [facility] SAXENDA 3 mg/0.5 mL (18 mg/3 mL) PnIj 2021-06 00:00: 00 Yes ADMINISTER 3 MG UNDER THE SKIN DAILY [facility] SERTraline 100 mg tablet 2021-06 00:00: 00 Yes 100mg Take 100 mg by mouth in the morning. [facility] SERTraline 100 mg tablet 2021-06 00:00: 00 Yes 100mg Take 100 mg by mouth in the morning. [facility] SERTraline 100 mg tablet 2021-06 00:00: 00 Yes 100mg Take 100 mg by mouth in the morning. [facility] SERTraline 100 mg tablet 2021-06 00:00: 00 Yes 100mg Take 100 mg by mouth in the morning. [facility] BD CHEYRL 2ND GEN PEN NEEDLE 32 gauge x 5/32" Ndle 2021-06 010 00:00: 00 Yes USE DIRECTED ONCE A DAY. [facility] BD CHERYL 2ND GEN PEN NEEDLE 32 gauge x 5/32" Ndle 2021-06 0-10 00:00: 00 Yes USE DIRECTED ONCE A DAY. [facility] BD CHERYL 2ND GEN PEN NEEDLE 32 gauge x 5/32" Ndle 2021-06 0-10 00:00: 00 Yes USE DIRECTED ONCE A DAY. [facility] BD CHERYL 2ND GEN PEN NEEDLE 32 gauge x 5/32" Ndle 2021-06 0-10 00:00: 00 Yes USE DIRECTED ONCE A DAY. [facility] Vital Signs Vital Name Observation Time Observation Value Comments S ganga Systolic blood pressure 2023-02-06 20:42:00 136 mm[Hg] [facility] Diastolic blood pressure 2023-02-06 20:42:00 83 mm[Hg] [place] [facility] Heart rate 2023-02-06 20:42:00 103 /min Unive [facility] Body temperature 2023-02-06 20:42:00 37.44 Viviana [facility] Respiratory rate 2023-02-06 20:42:00 16 /min [facility] Body height 2023-02-06 20:42:00 170.5 cm [facility] Body weight 2023-02-06 20:42:00 85.322 kg [facility] BMI 2023-02-06 20:42:00 29.35 kg/m2 [facility] Oxygen saturation in Arterial blood by Pulse oximetry 2023-02-06 20:42:00 98 /min [facility] Systolic blood pressure 2022-05-19 22:56:00 137 mm[Hg] [facility] Diastolic blood pressure 2022-05-19 22:56:00 79 mm[Hg] [facility] Heart rate 2022-05-19 22:56:00 94 /min [facility] Body temperature 2022-05-19 22:56:00 36.94 Viviana [facility] Respiratory rate 2022-05-19 22:56:00 16 /min [facility] Body height 2022-05-19 22:56:00 172.7 cm [facility] Body weight 2022-05-19 22:56:00 99.338 kg [facility] BMI 2022-05-19 22:56:00 33.30 kg/m2 [facility] Oxygen saturation in Arterial blood by Pulse oximetry 2022-05-19 22:56:00 98 /min [facility] Procedures Procedure Date / Time Performed Performing Clinicia n Source POCT MOLECULAR FLU 2023-02-06 20:57:00 Unknown, Attend [facility] POCT SARS-COV-2 ANTIGEN (BINAX NOW) 2023-02-06 20:55:00 Dontrell Parikh [facility] POCT MOLECULAR STREP 2023-02-06 20:49:00 Unknown, Luly harris [facility] POCT MOLECULAR FLU 2022-05-19 22:57:00 Unknown, Attend [facility] POCT MOLECULAR STREP 2022-05-19 22:54:00 Christen, Luly harris [facility] ASSIGNMENT OF BENEFITS 2022-05-19 22:44:56 Docto r Unassigned, [place] [facility] Encounters Start Date/Time End Date/Time Encounter Type Admission Type Attending [facility] Care Facility Care Department Encounter ID Source 2023-02-06 15:40:00 2023-02-06 16:11:02 Urgent Care Dontrell Parikh Unknown, Attending [facility] 1.2.840.114 350.1.13.10 4.2.7.2.686 [id number] [facility] 2023-02-06 15:40:00 2023-02-06 16:11:02 Outpatient R DONTRELL PARIKH [facility] [id number] [facility] 2023-02-06 00:00:00 2023-02-06 00:00:00 Letter (Out) Dontrell Parikh [facility] 1.2.840.114 350.1.13.10 4.2.7.2.686 [id number] [facility] 2022-06-11 00:00:00 2022-06-11 00:00:00 Refill Renuka Alva [facility] 1.2.840.114 350.1.13.10 4.2.7.2.686 [id number] [facility] 2022-05-19 16:40:00 2022-05-19 17:00:00 Urgent Care [facility] 1.2.840.114 350.1.13.10 4.2.7.2.686 [id number] [facility] 2022-05-19 16:40:00 2022-05-19 16:40:00 Outpatient R RENUKA ALVA [facility] [id number] [facility] 2022-05-19 00:00:00 2022-05-19 00:00:00 Orders Only Doctor Unassigned, [place] [facility] 1.114 350.1.13.10 4.2.7.2.686 [id number] [facility] 2021-06-17 13:45:00 2021-06-17 14:00:00 Laboratory Only Only, Ang Db Test Unknown, Attending Joselin Alvatany [facility] 1.114 350.1.13.10 4.2.7.2.686 [id number] [facility] 2021-06-17 13:45:00 2021-06-17 13:45:00 Outpatient R RENUKA ALVA [facility] [id number] [facility] 2021-02-15 16:45:00 2021-02-15 16:45:00 Outpatient R [facility] [id number] [facility] 2020-06-23 16:15:26 2020-06-23 16:35:26 Laboratory Only Lab, [facility] 1.114 350.1.13.10 4.2.7.2.686 [id number] 2020-06-23 16:15:26 2020-06-23 16:35:26 Laboratory Only Lab, [facility] Brandi Hurtado [facility] 1.114 350.1.13.10 4.2.7.2.686 [id number] [facility] 2020-06-23 16:15:00 2020-06-23 16:15:00 Outpatient R MADISON HURTDAO [facility] [id number] [facility] 2020-04-27 08:41:59 2020-04-27 09:01:59 Laboratory Only Lab, [facility] 1.2.840.114 350.1.13.10 4.2.7.2.686 [id number] 2020-04-27 08:41:59 2020-04-27 09:01:59 Laboratory Only Lab, [facility] Fam Pob Shanelle Lancaster [facility] 1.840.114 350.1.13.10 4.2.7.2.686 [id number] [facility] 2020-04-27 08:40:00 2020-04-27 08:40:00 Outpatient Merrill CYNTHIA, SHANELLE [facility] [id number] [facility] 2020-01-31 00:00:00 2020-01-31 00:00:00 Telephone [facility] 1..840.114 350.1.13.10 4.2.7.2.686 [id number] 2020-01-31 00:00:00 2020-01-31 00:00:00 Telephone [facility] 1.2.840.114 350.1.13.10 4.2.7.2.686 [id number] [facility] 2020-01-29 13:00:01 2020-01-29 13:20:01 Laboratory Only Lab, [facility] Fam Leonardb Noelle Erika Carrenothia [facility] 1.840.114 350.1.13.10 4.2.7.2.686 [id number] [facility] 2020-01-29 13:00:01 2020-01-29 13:20:01 Laboratory Only Lab, [facility] Pob I [facility] 1.840.114 350.1.13.10 4.2.7.2.686 [id number] 2020-01-29 13:00:00 2020-01-29 13:00:00 Outpatient Merrill NAYE CARRENO [facility] [id number] [facility] 2020-01-29 00:00:00 2020-01-29 00:00:00 Letter (Out) Doctor Unassigned, [place] [facility] 1.2.840.114 350.1.13.10 4.2.7.2.686 [id number] [facility] 2020-01-29 00:00:00 2020-01-29 00:00:00 Letter (Out) Doctor Unassigned, [place] [facility] 1.2.840.114 350.1.13.10 4.2.7.2.686 [id number] [facility] 2020-01-29 00:00:00 2020-01-29 00:00:00 Letter (Out) Doctor Unassigned, [place] [facility] 1.2.840.114 350.1.13.10 4.2.7.2.686 [id number] 2020-01-29 00:00:00 2020-01-29 00:00:00 Letter (Out) Doctor Unassigned, [place] [facility] 1.2.840.114 350.1.13.10 4.2.7.2.686 [id number] Results Test Description Test Time Test Comments Results Result Co mments Source [facility] MOLECULAR [id number] 21:09:10* Test Item Value Reference Range Interpretation Comme nts POCT Molecular FluA (test co de = 43599-7) Negative Negative POCT Molecular FluB (test co de = 49810-3) Negative Negative Lab Interpretation (test cod e = 79096-3) Normal [facility] MOLECULAR [id number] 20:56:41* Test Item Value Reference Range Interpretation Comme nts POCT Molecular Strep (test c ode = 08342-9) Negative Negative Lab Interpretation (test cod e = 39742-7) Normal [facility] MOLECULAR [id number] 23:08:59* Test Item Value Reference Range Interpretation Comme nts POCT Molecular FluA (test co de = 11448-6) Negative Negative POCT Molecular FluB (test co de = 43709-1) Negative Negative Lab Interpretation (test cod e = 54421-0) Normal [facility] [id number] 23:03:07* Test Item Value Reference Range Interpretation Comme nts POCT Molecular Strep (test c ode = 94727-1) Negative Negative Lab Interpretation (test cod e = 15571-8) Normal [facility]
[2023-07-15 02:39] LABS: Hematocrit 38.6 % (36.0-45.0); Lymphocytes % 26.7 % (15.3-44.8); MCV 90.2 fL (80-100); MPV 9.5 fL (7.6-11.3); Platelets 223 thou/uL (152-406); RBC Red Blood Cell Count 4.28 M/uL (3.86-4.86)
[2023-07-15 02:42] LABS: Specific Gravity 1.022 (1.005-1.030); Urine Bacteria None Seen /HPF (<20); Urine Bilirubin NEGATIVE (Negative); Urine Blood 3+ (OVER) (Negative); Urine Clarity Clear (Clear); Urine Color Light-Yellow (Yellow); Urine Glucose NEGATIVE (Negative); Urine Mucus Slight /HPF (None Seen); Urine Protein NEGATIVE (Negative); Urine RBC >50 /HPF (None Seen); Urine Urobilinogen Normal (Normal)
[2023-07-15 03:26] LABS: ALT/SGPT 16 U/L (13-56); Albumin 3.1 g/dL (3.4-5.0); Alkaline Phosphatase 76 U/L (45-117); BUN Blood Urea Nitrogen 13 mg/dL (7-18); Bicarbonate 25 mEq/L (21-32); Bilirubin Total 0.2 mg/dL (0.2-1.0); Glomerular Filtration Rate 126 ml/min (=/>90); Glucose Level 106 mg/dL (74-106); HCG, Quantitative 11852 mIU/mL (1-3); Potassium 3.8 mEq/L (3.5-5.1); Protein, Total 6.7 g/dL (6.4-8.2); Sodium Level 136 mEq/L (136-145)
[2023-07-15 03:30] LABS: AST/SGOT < 4 U/L (15-37)
--- NOTE | 2023-07-15 04:01 | EDPHYS ---
Physician Documentation [facility] Name: Elisabeth Hernández Age: 28 yrs Sex: Female : 1995 Arrival Date: 07/15/2023 Time: 01:41 Bed 6 Private MD: ED Physician Say Gonzalez HPI: 07/15 01:57 This 28 yrs old Female presents to ER via Unassigned with complaints of 7 sp4 weeks preg and having vag bleeding ,cramping. 02:02 Patient he is -0-1-0 at 7 weeks EGA, LMP 05/27/2023, OB Dr. Jackson at [address], presents with heavy vaginal bleeding and passing clots since Saturday 4 days ago. 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 Last tetanus immunization: > 10 years ago Flu vaccine is not up to date. - Social history:: Smoking status: Patient denies any tobacco usage or history of. Patient uses alcohol, but reports only rare drinking. Patient/guardian denies using street drugs. - Family history:: not pertinent. ROS: 02:02 Constitutional: Negative for fever, chills, and weight loss, positive vaginal bleeding, sp4 pelvic pain and passing clots. 02:02 All other systems are negative, Exam: 02:02 Constitutional: This is a well developed, well nourished patient who is awake, alert, sp4 and in no acute distress. Head/Face: Normocephalic, atraumatic. Eyes: Pupils equal round and reactive to light, extra-ocular motions intact. Lids and lashes normal. Conjunctiva and sclera are not injected. Cornea within normal limits. Periorbital areas with no swelling, redness, or edema. ENT: Nares patent. No nasal discharge, no septal abnormalities noted. Tympanic membranes are normal and external auditory canals are clear. Oropharynx with no redness, swelling, or masses, exudates, or evidence of obstruction, uvula midline. Mucous membranes moist. Neck: Trachea midline, no thyromegaly or masses palpated, and no cervical lymphadenopathy. Supple, full range of motion without nuchal rigidity, or vertebral point tenderness. Chest/axilla: Normal chest wall appearance and motion. Nontender with no deformity. No lesions are appreciated. Cardiovascular: Regular rate and rhythm with a normal S1 and S2. No gallops, murmurs, or rubs. Normal PMI, no JVD. No pulse deficits. Respiratory: Lungs have equal breath sounds bilaterally, clear to auscultation and percussion. No rales, rhonchi or wheezes noted. No increased work of breathing, no retractions or nasal flaring. Abdomen/GI: Soft, non-tender, with normal bowel sounds. No distension or tympany. No guarding or rebound. No evidence of tenderness throughout. Back: No spinal tenderness. No costovertebral tenderness. Skin: Warm, dry with normal turgor. Normal color with no rashes, no lesions, and no evidence of cellulitis. MS/ Extremity: Pulses equal, no cyanosis. Neurovascular intact. Full, normal range of motion. Neuro: Awake and alert, GCS 15, oriented to person, place, time, and situation. Cranial nerves II-XII grossly intact. Motor strength 5/5 in all extremities. Sensory grossly intact. Psych: Awake, alert, with orientation to person, place and time. Behavior, mood, and affect are within normal limits Vital Signs: 02:00 BP 106 / 66; Pulse 62; Pulse Ox 98% on R/A; Pain 0/10; tm6 02:07 BP 116 / 70; Pulse 63; Resp 17 S; Temp 97.6(O); Pulse Ox 98% on R/A; Weight 83.91 kg; jw7 Height 5 ft. 7 in. ; Pain 4/10; 03:00 BP 110 / 64; Pulse 67; Pulse Ox 98% on R/A; Pain 0/10; tm6 02:07 Body Mass Index 28.97 (83.91 kg, 170.18 cm) [facility] 02:00 Pain Scale: Adult 6 02:07 Pain Scale: Adult jw7 03:00 Pain Scale: Adult tm6 MDM: 02:44 Patient medically screened. sp4 03:19 ED course: US PREGNANCYTRANSVAGINAL Clinical Indication: bleeding in sp4 Comparison: None Technique: The exam was performed via transvaginal approach. Result: UTERUS: The uterus measures 7.3 cm longitudinally. No intrauterine gestational sac is visualized. The endometrium measures approximately 9 mm in thickness. OVARIES \T\ ADNEXA: The right ovary measures 3.2 x 1.6 x 1.8 cm. The left ovary measures 3.8 x 2.3 x 2.5 cm. Both ovaries demonstrate vascular flow. No suspicious adnexal masses are seen. PELVIS: There is trace free fluid in the pelvis. Impression: No intrauterine gestation is visualized. No suspicious adnexal masses. Trace nonspecific fluid in the pelvic cul-de-sac Follow-up with quantitative beta-hCG and ultrasound recommended as clinically indicated. Electronically signed by: Gustavo Anaya MD 07/15/2023 03:11 AM. 03:58 Differential Diagnosis Miscarriage. Data reviewed: vital signs, nurses notes, lab test sp4 result(s), radiologic studies, ultrasound. Consideration of Admission/Observation Escalation of care including admission/observation considered. ED course: Blood type is O+, ultrasound reveals trace free fluid in the pelvis, no intrauterine gestation, no suspicious adnexal mass, trace nonspecific fluid in the cul-de-sac. At this time sign of miscarriage based on presentation and ultrasound. Will advise hCG level in 2 days. Also follow-up with BACKHOE OPERATOR in 2 days. 07/15 02:01 Order name: CBC with Diff; Complete Time: 02:51 sp4 07/15 02:01 Order name: CMP; Complete Time: 03:57 sp4 07/15 02:01 Order name: Urinalysis w/ reflexes; Complete Time: 02:51 sp4 07/15 02:01 Order name: Abo/rh Typing; Complete Time: 03:57 sp4 07/15 02:02 Order name: HCG-Quantitative; Complete Time: 03:57 sp4 07/15 02:54 Order name: Transvaginal OB EDMS 07/15 02:01 Order name: IV Saline Lock; Complete Time: 02:20 sp4 07/15 02:01 Order name: Labs collected and sent; Complete Time: 02:20 sp4 Administered Medications: No medications were administered Disposition Summary: 07/15/23 04:00 Discharge Ordered Notes: We recommend repeat HCG level in 2 days. Location: Home sp4 Problem: new sp4 Symptoms: have improved sp4 Condition: Stable sp4 Diagnosis - Incomplete spontaneous without complication sp4 Followup: sp4 - With: Private Physician - When: 1 - 2 days - Reason: Recheck today's complaints Discharge Instructions: - Discharge Summary Sheet sp4 - Incomplete Miscarriage sp4 Forms: - Patient Portal Instructions sp4 Signatures: Dispatcher [employer] Ade Ruff RN RN jw7 Say Gonzalez MD MD sp4 Corrections: (The following items were deleted from the chart) 02:54 02:02 OB Limited+US.RAD.BRZ ordered. EDDE EDMS
--- NOTE | 2023-07-15 04:01 | ER ---
Nurse's Notes [facility] Name: Elisabeth Hernández Age: 28 yrs Sex: Female : 1995 Arrival Date: 07/15/2023 Time: 01:41 Bed 6 Private MD: Diagnosis: Incomplete spontaneous without complication Presentation: 07/15 02:07 Chief complaint: Patient states: "I started having light bleeding about a week ago that jw7 was only when I wiped, but on Saturday it started to get bad with heavier bleeding and abdominal cramping". Coronavirus screen: At this time, the client does not indicate any symptoms associated with coronavirus-19. Ebola Screen: No symptoms or risks identified at this time. Initial Sepsis Screen: Does the patient meet any 2 criteria? No. Patient's initial sepsis screen is negative. Does the patient have a suspected source of infection? No. Patient's initial sepsis screen is negative. Risk Assessment: Do you want to hurt yourself or someone else? Patient reports no desire to harm self or others. Onset of symptoms was July 12, 2023. Care prior to arrival: Medication(s) given: Tylenol. 02:07 Method Of Arrival: Ambulatory jw7 02:07 Acuity: PHILL 3 jw7 Triage Assessment: 02:10 General: Appears in no apparent distress. comfortable, Behavior is calm, cooperative. jw7 Pain: Complains of pain in abdomen Pain does not radiate. Pain currently is 4 out of 10 on a pain scale. at worst was 8 out of 10 on a pain scale. Quality of pain is described as crampy, Pain began 2-3 days ago. Is intermittent. EENT: No deficits noted. No signs and/or symptoms were reported regarding the EENT system. Neuro: [place] Agitation-Sedation Scale (RASS): 0 - Alert and Calm Level of Consciousness is awake, alert, obeys commands, Oriented to person, place, time, situation. Cardiovascular: Capillary refill < 3 seconds Clubbing of nail beds is absent JVD is absent Patient's skin is warm and dry. Respiratory: Airway is patent Trachea midline Respiratory effort is even, unlabored, Respiratory pattern is regular, symmetrical. GI: Abdomen is round non-distended, Bowel sounds present X 4 quads. : No deficits noted. No signs and/or symptoms were reported regarding the genitourinary system. Derm: Skin is intact, is healthy with good turgor, Skin is dry, Skin is normal, Skin temperature is warm. Musculoskeletal: Circulation, motion, and sensation intact. Range of motion: intact in all extremities. 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 Last tetanus immunization: > 10 years ago Flu vaccine is not up to date. - Social history:: Smoking status: Patient denies any tobacco usage or history of. Patient uses alcohol, but reports only rare drinking. Patient/guardian denies using street drugs. - Family history:: not pertinent. Screenin:14 [facility] ED Fall Risk Assessment (Adult) History of falling in the last 3 months, jw7 including since admission No falls in past 3 months (0 pts) Score/Fall Risk Level 0 - 2 = Low Risk Oriented to surroundings, Maintained a safe environment, Educated pt \\T\\ family on fall prevention, incl call for assistance when getting out of bed. Abuse screen: Denies threats or abuse. Denies injuries from another. Nutritional screening: No deficits noted. Tuberculosis screening: No symptoms or risk factors identified. Assessment: 02:14 General: See Triage Assessment. jw7 04:09 Reassessment: Patient appears in no apparent distress at this time. No changes from tm6 previously documented assessment. Patient and/or family updated on plan of care and expected duration. Pain level reassessed. Patient is alert, oriented x 3, equal unlabored respirations, skin warm/dry/pink. Vital Signs: 02:00 BP 106 / 66; Pulse 62; Pulse Ox 98% on R/A; Pain 0/10; tm6 02:07 BP 116 / 70; Pulse 63; Resp 17 S; Temp 97.6(O); Pulse Ox 98% on R/A; Weight 83.91 kg; jw7 Height 5 ft. 7 in. ; Pain 4/10; 03:00 BP 110 / 64; Pulse 67; Pulse Ox 98% on R/A; Pain 0/10; tm6 02:07 Body Mass Index 28.97 (83.91 kg, 170.18 cm) jw7 02:00 Pain Scale: Adult tm6 02:07 Pain Scale: Adult jw7 03:00 Pain Scale: Adult tm6 ED Course: 01:45 Patient arrived in ED. gm2 01:57 Say Gonzalez MD is Attending Physician. sp4 02:10 Triage completed. jw7 02:10 Arm band placed on. jw7 02:14 Patient has correct armband on for positive identification. Bed in low position. Call [facility] light in reach. 02:20 Provided Education on: plan of care. Client placed on continuous cardiac and pulse tm6 oximetry monitoring. NIBP monitoring applied. Door closed. Noise minimized. Lights dimmed. Warm blanket given. PO fluids given. 02:20 Inserted saline lock: 20 gauge in right antecubital area, using aseptic technique. tm6 02:54 Transvaginal OB In Process Unspecified. EDMS 04:10 No provider procedures requiring assistance completed. IV discontinued, intact, tm6 bleeding controlled, No redness/swelling at site. Pressure dressing applied. Administered Medications: No medications were administered Medication: 02:20 VIS not applicable for this client. tm6 Outcome: 04:00 Discharge ordered by . sp4 04:10 Discharged to home ambulatory, with family, tm6 04:10 Condition: stable 04:10 Discharge instructions given to patient, family, Instructed on discharge instructions, follow up and referral plans. Demonstrated understanding of instructions, follow-up care, 04:10 Patient left the ED. tm6 Signatures: Dispatcher [employer] EDNJ Ade Villasenor RN RN jw7 Say Gonzalez MD MD sp4 Yomaira Bolanos 2 Adin Evangelista RN RN tm6
--- NOTE | 2023-07-15 12:59 | RAD REPORT ---
EXAM DESCRIPTION: US - Transvaginal OB - 07/15/2023 2:53 am CLINICAL HISTORY: Bleeding in COMPARISON: None TECHNIQUE: The exam was performed via transvaginal approach. Result: UTERUS: The uterus measures 7.3 cm longitudinally. No intrauterine gestational sac is visualized. The endometrium measures approximately 9 mm in thickness. OVARIES & ADNEXA: The right ovary measures 3.2 x 1.6 x 1.8 cm. The left ovary measures 3.8 x 2.3 x 2. 5 cm. Both ovaries demonstrate vascular flow. No suspicious adnexal masses are seen. PELVIS: There is trace free fluid in the pelvis. IMPRESSION: No intrauterine gestation is visualized. No suspicious adnexal masses. Trace nonspecific fluid in the pelvic cul-de-sac Follow-up with quantitative beta-hCG and ultrasound recommended as clinically indicated. Electronically signed by: Gustavo Anaya MD 07/15/2023 03:11 AM COMMISSIONS COORDINATOR Due to temporary technical issues with the PACS/Fluency reporting system, reports are being signed by the in house radiologist without review as a courtesy to ensure prompt reporting. The interpreting r adiologist is fully responsible for the content of the report.
[2023-07-15 17:03] VITALS: BP 110/64; TEMP 97.6; O2SAT 98
== END ==
LOC: ER 01:41
DX: O03.4 Incomplete spontaneous abortion without complication (principal)
CPT/HCPCS: 36415; 76817; 80053; 81001; 84702; 85025; 86900; 86901